=== PATIENT | male | born 2000 | race Caucasian/White ===

== ENCOUNTER 2024-09-19 11:29 | Outpatient (AMB) | payer OTHER, SELFPAY ==
--- NOTE | 2024-09-19 12:39 | MHC.OFFWIV ---
Intake Vital Signs 09/19/24 12:41 Height 6 ft Weight 189 lb BMI 25.6 BP 122/80 Blood Pressure Location Rt brachial Position Sitting Pulse 81 Pulse Source Pulse Oximeter Temp 98.1 F Temp Source Oral Pulse Oximetry (%) 98 Oxygen Delivery Method Room Air Intake Visit Reasons: [employer] chest and Lung due to cough Intake Note: Patient here for cough and lung pain that started last week. Patient Tobacco Use Status: Never used Tobacco Allergies No Known Allergies Allergy (Verified 09/19/24 12:48) Medication List - Last Reconciled 09/19/24 by Chaitanya Naranjo MD No Known Home Meds Do you need a note to return to daycare/school/sports/work: No HPI [employer] chest and Lung due to cough HPI Details 24-year-old male presents to the office for a sick visit. Patient is reporting symptoms of cough, nonproductive with shortness of breath for the past 2 weeks. 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 He was diagnosed with COVID 2 weeks ago and took amoxicillin for 7 days. Symptoms started after. Today while he was trying to run he started wheezing. [facility] Social History Patient Tobacco Use Status: Never used Tobacco Physical Exam Vital Signs: Last Vital Signs Temp 98.1 F 09/19/24 12:41 Pulse 81 09/19/24 12:41 BP 122/80 09/19/24 12:41 Pulse Ox 98 09/19/24 12:41 Oxygen Delivery Method Room Air 09/19/24 12:41 BMI result Body Mass Index 25.6 Const General: cooperative and healthy appearing Nutritional Appearance: well nourished Orientation/consciousness: patient oriented x3 Limitations: no limitations HEENT Head: Yes normal to inspection Eyes General: appearance normal, both eyes and all related structures Neck Neck: Yes normal visual inspection Chest Chest palpation & inspection: normal palpation of entire chest wall Resp Effort & Inspection: normal respiratory effort Neuro General: patient oriented x3 Assessment & Plan Assessment & Plan (1) Cough: Code(s): R05.9 - Cough, unspecified Plan: X-ray images personally reviewed by me. No infiltrate seen. Prednisone and inhalers called in. Patient was given a note that allows him not to exercise for a few days. Orders: Orders XR chest 2V Today R05.9 - Cough, unspecified Coding Level of Care Code Est Pt Level 4 (02263) Diagnoses Cough R05.9
[2024-09-19 12:41] VITALS: BP 122/80; PULSE 81; TEMP 36.7; O2SAT 98; BMI 25.6
== END 2024-09-19 13:30 | disposition home or self-care (01) ==
PROVIDERS: Visit Provider Internal Medicine
DX: R05.9 Cough, unspecified (principal)

== ENCOUNTER 2024-09-19 11:29 | Outpatient (REF) | payer OTHER, SELFPAY ==
--- NOTE | ~2024-09-19 | XR_ITS ---
EXAMINATION: XR CHEST CLINICAL INFORMATION: Cough, unspecified R05.9. COMPARISON: None available. TECHNIQUE: 2 views of the chest were obtained. FINDINGS: No significant abnormality is noted involving the heart, lungs, mediastinum, bony thorax or soft tissues. XR/XR chest 2V IMPRESSION: Unremarkable examination. Electronically signed by: Chava Grullon MD 11/01/2024 12:35 PM [facility]
== END 2024-09-19 11:30 | disposition home or self-care (01) ==
LOC: HO.HMGCX 11:29
PROVIDERS: Visit Provider Internal Medicine
DX: R05.9 Cough, unspecified (principal)
CPT/HCPCS: 71046; 99212